=== PATIENT | female | born 1935 | race Caucasian/White ===

== ENCOUNTER 2020-02-26 17:08 | Emergency (ER) | payer MEDICARE, BC ==
[~2020-02-26] VITALS: Ht 160 cm; Wt 49.4 kg
[2020-02-26] MEDS ORDERED: ONDANSETRON 4 MG/2 ML VIAL IV ONE ×2 (17:30→19:45)
[2020-02-26] MEDS ORDERED: IV NORMAL SALINE 500 ML BAG IV ONE (17:30)
[2020-02-26] MEDS ORDERED: HYDROCODONE/APAP 5-325MG TABLET PO ONE (17:30)
[2020-02-26] MEDS ORDERED: ONDANSETRON 4 MG/2 ML VIAL ONE ×2 (17:34→19:37)
[2020-02-26] MEDS ORDERED: HYDROCODONE/APAP 5-325MG TABLET ONE (17:35)
[2020-02-26] MEDS ORDERED: LEVO88TA2 PO (17:39)
[2020-02-26] MEDS ORDERED: HYDR-4384 PO (17:39)
[2020-02-26] MEDS ORDERED: TRAM50TA2 PO (17:39)
[2020-02-26] MEDS ORDERED: AMLO5TAB4 PO (17:39)
[2020-02-26] MEDS ORDERED: NEBI10TA2 PO (17:39)
--- NOTE | 2020-02-26 18:02 | NUR ---
DR MADE AWARE OF PT ELEVATED BP.
[2020-02-26 18:04] LABS: BASOPHILS % (AUTO) 0.5 % (0.0-2.0); EOSINOPHILS # (AUTO) 0.1 K/uL (0.0-0.7); EOSINOPHILS % (AUTO) 1.7 % (0.0-7.0); HEMATOCRIT 42.5 % (31.2-41.9); HEMOGLOBIN 14.4 g/dL (10.9-14.3); LYMPHOCYTES # (AUTO) 1.1 K/uL (20.0-40.0); LYMPHOCYTES % (AUTO) 13.5 % (20.5-51.5); MEAN CORPUSCULAR HEMOGLOBIN 32.5 uug (24.7-32.8); MEAN CORPUSCULAR HGB CONC 34 g/dL (32.3-35.6); MEAN CORPUSCULAR VOLUME 95.8 fL (75.5-95.3); MONOCYTES # (AUTO) 0.8 K/uL (2.0-10.0); MONOCYTES % (AUTO) 10.6 % (0.0-11.0); NEUTROPHILS # (AUTO) 5.8 K/uL (1.8-8.9); NEUTROPHILS % (AUTO) 73.7 % (38.5-71.5); PLATELET COUNT (AUTO) 343 K/uL (179-408); RED BLOOD CELL COUNT(AUTO) 4.43 MIL/uL (3.63-4.92); WHITE BLOOD COUNT (AUTO) 7.9 K/uL (3.8-11.8)
[2020-02-26 18:11] LABS: CREATININE 1.1 mg/dL (0.6-1.3); POTASSIUM 3.5 mmol/L (3.5-5.1)
[2020-02-26 18:17] LABS: BILIRUBIN,DIRECT 0.1 mg/dL (0.0-0.2); BILIRUBIN,TOTAL 0.3 mg/dL (0.2-1.0); TOTAL PROTEIN, SERUM 7.7 g/dL (6.4-8.2)
[2020-02-26] MEDS ORDERED: FLEET ENEMA 133 ML BOTTLE RC ONE ×2 (18:40→18:45)
--- NOTE | 2020-02-26 18:59 | NUR ---
XRAY IN ROOM.
--- NOTE | 2020-02-26 19:00 | NUR ---
GAVE REPORT TO CAPRICE ESQUEDA.
--- NOTE | 2020-02-26 19:04 | NUR ---
Fabiola arvizu in [facility] - 02/26/20 at 1909 by RENETTA Assumed care of patient. no acute distress.
[2020-02-26 20:00] LABS: *BILIRUBIN,URIN NEGATIVE (NEGATIVE); *BLOOD, URINE NEGATIVE (NEGATIVE); *CLARITY,URINE CLEAR (CLEAR); *COLOR,URINE YELLOW (YELLOW); *KETONES,URINE 1+ (NEGATIVE); *UROBILINOGEN,URINE 0.2 E.U./dl (NORMAL); LEUKOCYTE ESTERASE ,URINE NEGATIVE (NEGATIVE); NITRITE, URINE NEGATIVE (NEGATIVE); UGLUCOSE NEGATIVE (NEGATIVE)
[2020-02-26 20:15] LABS: BACTERIA,URINE NONE SEEN /HPF (NONE SEEN); RBC,URINE 0-3 /HPF (0-3); SQUAMOUS EPITHELIAL CELL,UR FEW /HPF (NONE SEEN); WBC,URINE 0-3 /HPF (0-3)
--- NOTE | 2020-02-26 20:25 | NUR ---
DR PAUL SPOKE WITH DAUGHTER.
[2020-02-26 20:30] VITALS: BP 155/88
--- NOTE | 2020-02-26 20:30 | NUR ---
Patient discharged to home in stable condition. Written and verbal after care instructions given. Patient and daughter verbalizes understanding of instructions. Stressed follow up or return to ER for worsening s/s.
== END 2020-02-26 20:30 | disposition home or self-care (01) ==
LOC: ER 17:11
DX: R10.32 Left lower quadrant pain (principal); K59.00 Constipation, unspecified; N83.9 Noninflammatory disorder of ovary, fallopian tube and broad ligament, unspecified; E86.0 Dehydration; M47.816 Spondylosis without myelopathy or radiculopathy, lumbar region
CPT/HCPCS: 36415; 74018 ×2; 80048; 80076; 81001; 83690; 85025; 96374; 96376; 99284; J2405 ×2; J7030